=== PATIENT | male | born 1980 | race Two or more races ===

== ENCOUNTER 2025-03-14 19:08 | Emergency (ER) | payer MEDICAID, OTHER ==
[~2025-03-14] VITALS: Ht 172.7 cm; Wt 84.1 kg
[2025-03-14 19:10] VITALS: BP 133/94; PULSE 98; RESP 18; TEMP 98.1; O2SAT 100
== END 2025-03-14 19:38 | disposition left against medical advice (07) ==
LOC: ER 19:08